=== PATIENT | male | born 1985 | race Caucasian/White ===

== ENCOUNTER 2022-06-25 05:53 | Emergency (ER) | payer SELFPAY ==
[2022-06-25] MEDS ORDERED: Ondansetron ODT 8 MG TAB ONE (06:27)
[2022-06-25] MEDS ORDERED: Morphine 4 MG/ML VIAL ONE (06:27)
== END 2022-06-25 07:54 | disposition home or self-care (01) ==
LOC: ERS 05:53
DX: S86.812A Strain of other muscle(s) and tendon(s) at lower leg level, left leg, initial encounter (principal); F17.290 Nicotine dependence, other tobacco product, uncomplicated; X50.1XXA Overexertion from prolonged static or awkward postures, initial encounter
CPT/HCPCS: 96372; 99283; J2270; Q0162